=== PATIENT | male | born 1955 | race Caucasian/White ===

== ENCOUNTER 2022-01-23 12:54 | Emergency (ER) | payer OTHER ==
[~2022-01-23] VITALS: Ht 172.7 cm; Wt 80.0 kg
[~2022-01-23 12:54] MED LIST: AMOXICILLIN500 MG PO; FLUVASTATIN PO; LORTAB 10-325 M1 TAB PO; MYFORTIC360 MG PO; PREDNISODT10; [UNRECOGNIZED DRUG - OTHER]
[2022-01-23 13:57] VITALS: BP 122/73
[2022-01-23] MEDS ORDERED: AMOXICILLIN875 MG PO (15:19)
== END 2022-01-23 15:36 | disposition home or self-care (01) | DRG 153 ==
LOC: ED 12:54
DX: J01.90 Acute sinusitis, unspecified (principal); Z94.0 Kidney transplant status; Z79.899 Other long term (current) drug therapy; Z20.822 Contact with and (suspected) exposure to COVID-19